=== PATIENT | male | born 1940 | race Two or more races ===

== ENCOUNTER 2018-05-08 09:33 | Outpatient (CLI) | payer OTHER | END 2018-05-08 09:42 | disposition home or self-care (01) | LOC: RX STUDY 09:33 | DX: N35.8 Other urethral stricture (principal) | CPT/HCPCS: 51610; 74450; Q9965 ==

== ENCOUNTER → 2020-04-28 | Outpatient (CLI) | payer OTHER | END | disposition home or self-care (01) | LOC: RAD 09:37 | PROVIDERS: ATTEND Urology | DX: N35.814 Other anterior urethral stricture, male (principal) | CPT/HCPCS: 51600; 74455; Q9958 ==